=== PATIENT | female | born 2005 | race African-American/Black ===

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

== ENCOUNTER 2024-03-27 15:28 | Emergency (ER) | payer OTHER | END 2024-03-27 16:22 | disposition home or self-care (01) | LOC: CSHERS 15:28 | DX: K64.8 Other hemorrhoids (principal) | CPT/HCPCS: 99283 ==

== ENCOUNTER 2024-08-07 06:01 | Emergency (ER) | payer OTHER, SELFPAY ==
[2024-08-07] MEDS ORDERED: Ondansetron ODT 4 MG TAB ONE (07:01)
[2024-08-07] MEDS ORDERED: Acetaminophen 325 MG TAB ONE (07:01)
[2024-08-07] MEDS ORDERED: HYDROcodone/Acetaminophen 5/325 mg Tablet ONE (07:01)
[2024-08-07] MEDS ORDERED: Lidocaine 1% w/Epinephrine 1:200K 30 ML VIAL ONE (07:01)
[2024-08-07 07:23] LABS: Bilirubin Neg (Negative); Blood, Urine Negative (Negative); Clarity Clear (Clear); Glucose, Urine (Dipstick) Normal (Negative); Ketone, Urine Negative (Negative); Leukocyte Negative (Negative); Nitrite Negative (Negative); Protein, Urine (Dipstick) Negative (Neg-Trace); Urobilinogen Normal mg/dL (Less than 2); pH, Urine 6.5 (5.0-9.0)
[2024-08-07 07:35] LABS: Bacteria/HPF 1+ HPF (None Seen); CAUTI Indications for Culture Pelvic or flank pain; RBC/HPF 0-3 HPF (0-3); Squamous Epithelial 0-3 HPF (0-3); Urine Culture Reflex No No; WBC/HPF 0-3 HPF (0-3)
== END 2024-08-07 07:51 | disposition home or self-care (01) ==
LOC: CSHERS 06:01
DX: L05.01 Pilonidal cyst with abscess (principal)
CPT/HCPCS: 10080; 81001; Q0162